=== PATIENT | male | born 1995 | race Caucasian/White ===

== ENCOUNTER 2018-02-21 14:50 | Emergency (ER) | payer OTHER ==
[2018-02-21 15:04] VITALS: BP 141/82; PULSE 87; RESP 18; TEMP 97.4; O2SAT 98
== END 2018-02-21 16:50 | disposition home or self-care (01) | DRG 563 ==
LOC: ED 14:50
DX: S93.402A Sprain of unspecified ligament of left ankle, initial encounter (principal)
CPT/HCPCS: 29515; 73610; 99282; 99283; L4350